=== PATIENT | female | born 1960 | race Two or more races ===

== ENCOUNTER 2025-01-31 13:08 | Inpatient (IN) | payer OTHER ==
[~2025-01-31] VITALS: Ht 157.5 cm; Wt 78.9 kg
[2025-01-31] MEDS ORDERED: SYNTHROID137 MCG (14:34)
[2025-01-31] MEDS ORDERED: GRALISE600 MG (14:34)
[2025-01-31] MEDS ORDERED: TRIJARDY XR 5-1 EACH (14:35)
--- NOTE | 2025-01-31 14:41 | NUR ---
SE RECIBE PACIENTE FEMENINA ALERTA Y ORIENTADA X3 REFIERE TENER TOS. SE MIDE SIGNOS VITALES Y SE MADAN DXT 94. SE UBICA PACIENTE
[2025-01-31] MEDS ORDERED: METHYLPREDNISOLONE SOD SUCC 125 MG VIAL IV ONE (15:30)
[2025-01-31] MEDS ORDERED: LEVALBUTEROL HCL 1.25 MG/3 ML SOLUTION IH SCH (15:30)
[2025-01-31] MEDS ORDERED: GUAIFENESIN/DEXTROMETHORPHAN 100MG/10ML BLIST.PACK PO ONE ×2 (15:30→15:34)
[2025-01-31] MEDS ORDERED: IPRATROPIUM BROMIDE 0.5 MG/2.5 ML AMPUL.NEB IH SCH (15:30)
[2025-01-31] MEDS ORDERED: METHYLPREDNISOLONE SOD SUCC 125 MG VIAL ONE (15:33)
[2025-01-31 16:09] LABS: BASO % 0.5 % (0.1-1.2); EOS # 0.01 (0.04-0.54); EOS % 0.2 % (0.7-7.0); LYMPH # 0.98 (1.18-3.74); LYMPH % 14.7 % (19.3-53.1); MEAN PLATELET VOLUME 8.60 fl (9.4-12.4); MONO # 0.52 (0.24-0.82); MONO % 7.8 % (4.7-12.5); NEUT # 5.10 (1.56-6.13); NEUT % 76.5 % (34.0-71.1); RED CELL DISTRIBUTION WIDTH 14.6 % (11.6-14.4)
--- NOTE | 2025-01-31 16:15 | NUR ---
PTE EVALUADO DESIRAE CISNEROS, PRESENTANDO DIFICULTAD RESPIRATORIA, SE BENIGNO MUESTRAS DE LIBAN BAJO MEDIDAS ASEPTICAS Y MEDICACION ADMINISTRADA ESTEFANI ORDEN MEDICA. CLIENTE ES ORIENTADO SOBRE PROCEDIMIENTOS REALIZADOS Y SEGUIMINEOT DE TRATAMIENTO. SE NOTIFICA A TERAPIA RESPIRATORIA PARA SEGUIMIENTO DE TRATAMIENTO.
[2025-01-31 17:02] LABS: COVID-19 AG NEGATIVE (NEGATIVE)
[2025-01-31 17:17] LABS: ALT/SGPT 51.0 U/L (12-78); AST/SGOT 46.0 U/L (15-37); BILIRUBIN TOTAL 1.13 mg/dL (0.3-1.2); BUN CREA RATIO 17.0 (7.0-25.0); CREATININE SERUM 0.84 mg/dL (0.55-1.02); GFR 67.83; GLOBULINA 4.0 G/DL (2.4-3.5); GLUCOSE FASTING 75.0 mg/dL (65-100); OSMOLALITY SERUM 273.0 MOSM/KG (275-295)
[2025-01-31] MEDS ORDERED: LEVALBUTEROL HCL 1.25 MG/3 ML SOLUTION IH ONE (18:28)
[2025-01-31] MEDS ORDERED: IPRATROPIUM BROMIDE 0.5 MG/2.5 ML AMPUL.NEB IH ONE (18:28)
[2025-01-31] MEDS ORDERED: AZITHROMYCIN 500 MG VIAL IV ONE ×2 (21:15→22:08)
[2025-01-31] MEDS ORDERED: CEFTRIAXONE SODIUM 2,000 MG VIAL IV ONE (21:15)
[2025-01-31] MEDS ORDERED: INSULIN LISPRO 1,000 UNIT/10 ML UNITS SUBCUTANEO PRN (21:30)
[2025-01-31] MEDS ORDERED: DEXTROSE 50 % IN WATER 0.5 G/ML DISP.SYRIN IV PRN (21:30)
[2025-01-31] MEDS ORDERED: LEVALBUTEROL HCL 0.63 MG/3 ML SOLUTION IH SCH (21:32)
[2025-01-31] MEDS ORDERED: GABAPENTIN 100 MG CAPSULE PO SCH (21:42)
[2025-01-31] MEDS ORDERED: CEFTRIAXONE SODIUM 2,000 MG VIAL ONE (22:08)
[2025-01-31 23:16] VITALS: BP 114/78; O2SAT 99
[2025-02-01 02:25] VITALS: BP 110/65; O2SAT 90
[2025-02-01] MEDS ORDERED: LEVOTHYROXINE SODIUM 137 MCG TABLET PO SCH (06:00)
[2025-02-01 08:05] LABS: BASO % 0.2 % (0.1-1.2); EOS # 0.00 (0.04-0.54); EOS % 0.0 % (0.7-7.0); LYMPH # 0.55 (1.18-3.74); LYMPH % 11.4 % (19.3-53.1); MEAN PLATELET VOLUME 9.40 fl (9.4-12.4); MONO # 0.10 (0.24-0.82); MONO % 2.1 % (4.7-12.5); NEUT # 4.16 (1.56-6.13); NEUT % 85.9 % (34.0-71.1); RED CELL DISTRIBUTION WIDTH 14.4 % (11.6-14.4)
[2025-02-01 08:06] LABS: INR 1.1
[2025-02-01 08:14] LABS: BUN CREA RATIO 22.0 (7.0-25.0); CREATININE SERUM 0.9 mg/dL (0.55-1.02); GFR 62.64; OSMOLALITY SERUM 284.0 MOSM/KG (275-295)
[2025-02-01 08:22] LABS: GLUCOSE FASTING 205.0 mg/dL (65-100)
[2025-02-01] MEDS ORDERED: AZITHROMYCIN 500 MG VIAL IV ONE (08:54)
[2025-02-01] MEDS ORDERED: CEFTRIAXONE SODIUM 2,000 MG in 0.9 % SODIUM CHLORIDE 100 ML IV SCH (09:00)
[2025-02-01] MEDS ORDERED: AZITHROMYCIN 500 MG VIAL IV SCH (09:00)
[2025-02-01 09:04] LABS: BAND MAN 6.0 %; LYMPHOCYTE MAN 7.0 %; NEUTROPHILS MAN 87.0 %
[2025-02-01 09:25] VITALS: BP 123/75; O2SAT 92
[2025-02-01] MEDS ORDERED: LEVOTHYROXINE SODIUM 137 MCG TABLET PO NR (09:30)
[2025-02-01] MEDS ORDERED: PANTOPRAZOLE SODIUM 40 MG TABLET.DR PO NR (11:20)
[2025-02-01] MEDS ORDERED: ENOXAPARIN SODIUM 40 MG/0.4 ML SYRINGE SUBCUTANEO NR (11:20)
[2025-02-01] MEDS ORDERED: GUAIFEN/DEXTROMETHORPHAN/PE 10 ML BLIST.PACK PO SCH (16:00)
[2025-02-01] MEDS ORDERED: BENZONATATE 200 MG CAPSULE PO SCH (17:00)
[2025-02-01] MEDS ORDERED: DOXYCYCLINE HYCLATE 100MG IV SCH (21:00)
[2025-02-01 22:18] VITALS: BP 122/76; O2SAT 95
[2025-02-02 02:10] VITALS: BP 128/66; O2SAT 96
[2025-02-02] MEDS ORDERED: PANTOPRAZOLE SODIUM 40 MG TABLET.DR PO SCH (09:00)
[2025-02-02] MEDS ORDERED: ENOXAPARIN SODIUM 40 MG/0.4 ML SYRINGE SUBCUTANEO SCH (09:00)
[2025-02-02 09:15] VITALS: BP 118/72; O2SAT 93
[2025-02-02 18:07] VITALS: BP 125/71; O2SAT 95
[2025-02-02] MEDS ORDERED: TUBERCULIN,PURIF.PROT.DERIV. 5 TU/0.1 ML VIAL ID NR (19:15)
[2025-02-02] MEDS ORDERED: DOXYCYCLINE HYCLATE 100MG IV ONE (19:48)
[2025-02-03 03:01] VITALS: BP 115/69; O2SAT 99
[2025-02-03 06:14] LABS: BASO % 0.4 % (0.1-1.2); EOS # 0.12 (0.04-0.54); EOS % 1.6 % (0.7-7.0); LYMPH # 1.57 (1.18-3.74); LYMPH % 20.5 % (19.3-53.1); MEAN PLATELET VOLUME 9.50 fl (9.4-12.4); MONO # 0.60 (0.24-0.82); MONO % 7.8 % (4.7-12.5); NEUT # 5.30 (1.56-6.13); NEUT % 69.2 % (34.0-71.1); RED CELL DISTRIBUTION WIDTH 14.3 % (11.6-14.4)
[2025-02-03 06:44] LABS: ALT/SGPT 41.0 U/L (12-78); AST/SGOT 40.0 U/L (15-37); BILIRUBIN TOTAL 0.46 mg/dL (0.3-1.2); BUN CREA RATIO 30.0 (7.0-25.0); CREATININE SERUM 0.88 mg/dL (0.55-1.02); GFR 64.29; GLOBULINA 4.0 G/DL (2.4-3.5); GLUCOSE FASTING 137.0 mg/dL (65-100); OSMOLALITY SERUM 281.0 MOSM/KG (275-295)
[2025-02-03 08:00] VITALS: BP 111/67; O2SAT 92
[2025-02-03] MEDS ORDERED: DOXYCYCLINE HYCLATE 100MG IV ONE ×2 (08:06→15:31)
[2025-02-03] MEDS ORDERED: POTASSIUM BICARBONATE/CIT AC 25 MEQ TABLET.EFF PO NR (11:00)
[2025-02-03] MEDS ORDERED: POTASSIUM CHLORIDE 20MEQ/100ML H2O PB IV NR ×2 (11:00→17:00)
[2025-02-03 17:07] VITALS: BP 138/72; O2SAT 99
[2025-02-03] MEDS ORDERED: DOXYCYCLINE HYCLATE 100MG EACH PO SCH (21:00)
[2025-02-03] MEDS ORDERED: FLUTICASONE PROPIONATE 50 MCG SPRAY NASAL SCH (21:20)
[2025-02-04] VITALS: BP 116/83; O2SAT 95
[2025-02-04 08:00] VITALS: BP 123/67; O2SAT 97
[2025-02-04] MEDS ORDERED: FLUTICASONE PROPIONATE 50 MCG SPRAY NASAL SCH (09:00)
[2025-02-04 17:11] VITALS: BP 126/74; O2SAT 99
[2025-02-05 01:13] VITALS: BP 108/61; O2SAT 98
[2025-02-05 08:00] VITALS: BP 115/72; O2SAT 97
[2025-02-05 16:00] VITALS: BP 126/93; O2SAT 94
[2025-02-06 01:16] VITALS: BP 121/83; O2SAT 96
[2025-02-06 07:42] LABS: BASO % 0.5 % (0.1-1.2); EOS # 0.32 (0.04-0.54); EOS % 3.6 % (0.7-7.0); LYMPH # 0.97 (1.18-3.74); LYMPH % 11.0 % (19.3-53.1); MEAN PLATELET VOLUME 8.90 fl (9.4-12.4); MONO # 0.48 (0.24-0.82); MONO % 5.5 % (4.7-12.5); NEUT # 6.96 (1.56-6.13); NEUT % 79.1 % (34.0-71.1); RED CELL DISTRIBUTION WIDTH 13.7 % (11.6-14.4)
[2025-02-06 08:00] VITALS: BP 107/66; O2SAT 94
[2025-02-06 08:18] LABS: ALT/SGPT 60.0 U/L (12-78); AST/SGOT 49.0 U/L (15-37); BILIRUBIN TOTAL 0.53 mg/dL (0.3-1.2); BUN CREA RATIO 28.0 (7.0-25.0); CREATININE SERUM 0.8 mg/dL (0.55-1.02); GFR 71.76; GLOBULINA 4.1 G/DL (2.4-3.5); GLUCOSE FASTING 155.0 mg/dL (65-100); OSMOLALITY SERUM 282.0 MOSM/KG (275-295)
[2025-02-06] MEDS ORDERED: MEDROLPACK PO (13:06)
[2025-02-06] MEDS ORDERED: LEVALBUTER0.63 MG/3 IH (13:07)
[2025-02-06] MEDS ORDERED: BENZONATATE200 M1 PO (13:07)
== END 2025-02-06 17:25 | disposition home or self-care (01) | DRG 195 ==
LOC: ER 13:09 → MEDJ 22:11 → SURH 02-03 11:14
PROVIDERS: General Practice; ADMIT Internal Medicine; ATTEND Internal Medicine
PROC: 4A033R1 Measurement of Arterial Saturation, Peripheral, Percutaneous Approach (ICD-10-PCS; principal; 2025-01-31)
PROC: 3E0F7GC Introduction of Other Therapeutic Substance into Respiratory Tract, Via Natural or Artificial Opening (ICD-10-PCS; 2025-01-31)
PROC: BB24ZZZ Computerized Tomography (CT Scan) of Bilateral Lungs (ICD-10-PCS; 2025-01-31)
PROC: B246ZZZ Ultrasonography of Right and Left Heart (ICD-10-PCS; 2025-01-31)
PROC: 8E0ZXY6 Isolation (ICD-10-PCS; 2025-02-01)
DX: J18.9 Pneumonia, unspecified organism (principal); J44.9 Chronic obstructive pulmonary disease, unspecified; J06.9 Acute upper respiratory infection, unspecified; R06.02 Shortness of breath; I50.9 Heart failure, unspecified